=== PATIENT | male | born 1980 | race Caucasian/White ===

== ENCOUNTER 2019-10-13 15:14 | Emergency (ER) | payer OTHER, SELFPAY ==
[2019-10-13 15:32] VITALS: BP 119/87; PULSE 71; RESP 20; TEMP 36.8; O2SAT 98
--- NOTE | 2019-10-13 15:36 | ED.GENADULT ---
HPI - General Adult General Chief complaint: Medical Clearance Stated complaint: Physical for return to work Time Seen by Provider: 10/13/19 15:36 Source: patient Mode of arrival: ambulatory Limitations: no limitations History of Present Illness HPI narrative: Cyril Vargas is a 39 yo male who is here for a note to verify he go to work tomorrow. Patient told nurse that he has been on the street and he does not remember what happened a couple days prior but the agreement was that I would do physical on him and give him a note that he is okay today to be able to return. Patient reports that he has a seizure disorder but is taking his medication; he denies drug and alcohol use; currently smokes cigarettes Related Data Home Medications Medication Instructions Recorded Confirmed divalproex 750 mg PO BID 10/13/19 10/13/19 lacosamide [Vimpat] 50 mg PO Q12H 10/13/19 10/13/19 lacosamide [Vimpat] 200 mg PO Q12H 10/13/19 10/13/19 Allergies Allergy/AdvReac Type Severity Reaction Status Date / Time No Known Allergies Allergy Verified 10/13/19 15:40 Review of Systems Review of Systems: Narrative: CONSTITUTIONAL: Denies fever, chills, sweats. EYES: Denies visual changes, redness, discharge. ENT: Denies rhinorrhea, congestion, sore throat, otalgia. CARDIOVASCULAR: Denies chest pain, palpitations, edema. RESPIRATORY: Denies dyspnea, wheezing, cough GASTROINTESTINAL: Denies abdominal pain, nausea, vomiting, diarrhea. GENITOURINARY: Denies dysuria, hematuria, abnormal discharge SKIN: Denies rash or itching. NEUROLOGIC: Denies numbness, or focal weakness. PSYCHIATRIC: Denies anxiety or depression. Extremities normal PMF Family History Family History Other No known problems Social History Social History (Updated 10/13/19 @ 15:40 by Stacy Galan CNP) Smoking packs per day: 0.5 Smoking cigarettes per day: 10.0 Smoking status: Current every day smoker Alcohol intake: never Substance use: never Comments At time of signature, I agree with nursing past medical, surgical, social and family history. There is no relevant family history pertinent to the presenting complaint. Exam Narrative: Exam Narrative: GENERAL: This is a well-nourished, well-developed patient, in no apparent distress. HEAD: normocephalic, atraumatic. EYES: PERRL. Sclera clear/white. Vision is grossly intact. EARS: External ears normal, auditory canals clear and without drainage, TMs normal without perforation. Hearing grossly intact. NOSE: External nose normal with no obvious nasal discharge, nares without redness, no rhinorrhea. THROAT: Mucous membranes moist, posterior pharynx clear. Mouth: dentition fair NECK: Neck supple, non-tender without lymphadenopathy, CARDIOVASCULAR: Regular rate and rhythm without murmurs, gallops, or rubs. RESPIRATORY: Clear to auscultation. Breath sounds equal bilaterally. No wheezes, rales, or rhonchi. GASTROINTESTINAL: Abdomen soft, non-tender, nondistended. No guarding. SKIN: warm, intact with no suspicious lesions or rash, good texture and turgor. NEURO: awake, alert, and oriented to person, place and time. There were no obvious focal neurologic abnormalities. Steady gait; equal strength all extremities 5/5, normal ROM EXTREMITIES: Normal range of motion. No edema. BACK: Nontender without deformity or crepitance. No flank tenderness. Course Course Emergency Course: Patient appears healthy with no obvious deficits Vital Signs Vital signs: Vital Signs Temperature 98.3 F 10/13/19 15:32 Pulse Rate 71 10/13/19 15:32 Respiratory Rate 10/13/19 15:32 Blood Pressure 119/87 10/13/19 15:32 Pulse Oximetry 98 10/13/19 15:32 Temperature 98.3 F 10/13/19 15:32 Pulse Rate 71 10/13/19 15:32 Respiratory Rate 20 10/13/19 15:32 Blood Pressure 119/87 10/13/19 15:32 Pulse Oximetry 98 10/13/19 15:32 Medical Decision Liz
== END 2019-10-13 15:50 | disposition home or self-care (01) ==
PROVIDERS: Emergency Provider Nurse Practitioner
DX: Z00.00 Encounter for general adult medical examination without abnormal findings (principal); G40.909 Epilepsy, unspecified, not intractable, without status epilepticus; F17.210 Nicotine dependence, cigarettes, uncomplicated
CPT/HCPCS: 99211; G0463

== ENCOUNTER 2020-02-03 13:19 | Emergency (ER) | payer OTHER, SELFPAY ==
[2020-02-03 13:26] VITALS: BP 142/80; PULSE 98; RESP 16; TEMP 37.2; O2SAT 96
--- NOTE | 2020-02-03 14:19 | ED.WOUNDLAC ---
HPI - Wound/Laceration General Chief Complaint: Wound/Laceration Stated Complaint: cut to left middle finger Time Seen by Provider: 02/03/20 13:50 Source: patient Mode of arrival: ambulatory Limitations: no limitations History of Present Illness HPI narrative: Cyril Vargas is a 39 yo male with a PMH seizures and schizophrenia and substance abuse who comes to express care for repair of laceration of left middle finger. Injury sustained while working on a truck; no pain, controlled bleeding Related Data Home Medications Medication Instructions Recorded Confirmed divalproex 750 mg PO BID 10/13/19 02/03/20 lacosamide [Vimpat] 50 mg PO Q12H 10/13/19 02/03/20 lacosamide [Vimpat] 200 mg PO Q12H 10/13/19 02/03/20 olanzapine 10 mg PO DAILY 02/03/20 02/03/20 Allergies Allergy/AdvReac Type Severity Reaction Status Date / Time No Known Allergies Allergy Verified 02/03/20 13:39 Review of Systems Review of Systems: Narrative: CONSTITUTIONAL: Denies fever, chills, sweats. EYES: Denies visual changes, redness, discharge. ENT: Denies rhinorrhea, congestion, sore throat, otalgia. CARDIOVASCULAR: Denies chest pain, palpitations, edema. RESPIRATORY: Denies dyspnea, wheezing, cough GASTROINTESTINAL: Denies abdominal pain, nausea, vomiting, diarrhea. GENITOURINARY: Denies dysuria, hematuria, abnormal discharge SKIN: Denies rash or itching. Laceration to left middle finger NEUROLOGIC: Denies numbness, or focal weakness. PSYCHIATRIC: Denies anxiety or depression. [facility] Past Medical History Medical History (Updated 02/03/20 @ 14:24 by Stacy Galan CNP) Substance abuse Family History Family History (Updated 02/03/20 @ 14:21 by Stacy Galan CNP) Other No active medical problems No known problems Social History Social History (Updated 10/13/19 @ 15:40 by Stacy Galan CNP) Smoking packs per day: 0.5 Smoking cigarettes per day: 10.0 Smoking status: Current every day smoker Alcohol intake: never Substance use: never Comments At time of signature, I agree with nursing past medical, surgical, social and family history. There is no relevant family history pertinent to the presenting complaint. Blood pressure elevated probably due to injury and situation and express care; recheck blood pressure with PCP Exam Narrative: Exam Narrative: GENERAL: This is a well-nourished, well-developed patient, in no distress. HEAD: normocephalic, atraumatic. EYES: Sclera clear/white. Vision is grossly intact. EARS: External ears normal, Hearing grossly intact. NOSE: External nose normal without nasal discharge, nares without redness, no rhinorrhea. THROAT: Mucous membranes moist, NECK: Neck supple, CARDIOVASCULAR: Regular rate and rhythm without murmurs, gallops, or rubs. RESPIRATORY: Clear to auscultation. Breath sounds equal bilaterally. No wheezes, rales, or rhonchi. GASTROINTESTINAL: Abdomen soft, SKIN: warm, intact with no suspicious lesions or rash, good texture and turgor. 1.5 cm linear laceration to left middle finger, mild avulsion mid laceration NEURO: awake, alert, and oriented to person, place and time. There were no obvious focal neurologic abnormalities. Steady gait EXTREMITIES: Normal range of motion. BACK: Nontender without deformity Course Course Emergency Course: Laceration repair Tetanus immunization Follow-up with PCP for suture removal Vital Signs Vital signs: Vital Signs Temperature 99 F 02/03/20 13:26 Pulse Rate 98 02/03/20 13:26 Respiratory Rate 16 02/03/20 13:26 Blood Pressure 142/80 H 02/03/20 13:26 Pulse Oximetry 96 02/03/20 13:26 Temperature 99 F 02/03/20 13:26 Pulse Rate 98 02/03/20 13:26 Respiratory Rate 16 02/03/20 13:26 Blood Pressure 142/80 H 02/03/20 13:26 Pulse Oximetry 96 02/03/20 13:26 Procedures Laceration Laceration 1: Date: 02/03/20 Time: 14:00 Site: hand Side (If applicable): left
[2020-02-03] MEDS: TETANUS,DIPHTHERIA,AC PERTUSSIS ADULT (0.5 ML) BOOSTRIX IM (14:23)
== END 2020-02-03 14:34 | disposition home or self-care (01) ==
PROVIDERS: Emergency Provider Nurse Practitioner; PCP Nurse Practitioner Family
DX: S61.213A Laceration without foreign body of left middle finger without damage to nail, initial encounter (principal); F20.9 Schizophrenia, unspecified; F17.210 Nicotine dependence, cigarettes, uncomplicated; Z23 Encounter for immunization; X58.XXXA Exposure to other specified factors, initial encounter
CPT/HCPCS: 12001; 90471; 90715; 99212; G0463

== ENCOUNTER 2022-02-28 15:50 | Emergency (ER) | payer BC, OTHER, SELFPAY ==
--- NOTE | ~2022-02-28 | XR_ITS ---
EXAM: XR hand LT min 3V DATE: 02/28/2022 16:04 HISTORY: NKI, GEN SWELLING WITH NO REDNESS . COMPARISON: None available. FINDINGS: Normal mineralization. No fracture or dislocation. No lytic or blastic lesion. Joint space s are maintained. No erosion or periosteal change. Dorsal soft tissue swelling. No radiopaque foreign body. IMPRESSION: No acute osseous finding the left hand. Reviewed, dictated and finalized at location K.
[2022-02-28 15:54] VITALS: BP 110/72; PULSE 88; RESP 16; TEMP 36.9; O2SAT 99
[2022-02-28] MEDS: KETOROLAC (*BKC) 60 MG/2 ML VIAL IM (16:26)
--- NOTE | 2022-02-28 16:27 | ED.GENADULT ---
HPI - General Adult General Chief complaint: Extremity Injury, Upper Stated complaint: left hand poss cellulitis Source: patient Mode of arrival: ambulatory Limitations: no limitations History of Present Illness HPI narrative: Patient presents for evaluation of left hand and wrist swelling and pain for the last week. He cannot identify any precipitating injury. 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 States that his pain is sharp, shooting, 8 out of 10 in severity. He tried taking 400 mg of ibuprofen with some improvement in the symptoms. Ice does not seem to alleviate the swelling. He is right-hand dominant. No underlying history of gout. Reports some associated warmth but denies erythema or drainage from the area. No fever, chills, nausea, vomiting. No loss of range of motion but movement makes his symptoms worse. No additional complaints or concerns. Related Data Home Medications Medication Instructions Recorded Confirmed divalproex 250 mg tablet,delayed 250 mg PO DAILY 02/28/22 02/28/22 release divalproex 500 mg tablet,delayed 1,000 mg PO QPM 02/28/22 02/28/22 release divalproex 500 mg tablet,delayed 500 mg PO QAM 02/28/22 02/28/22 release quetiapine 200 mg tablet 200 mg PO QHS 02/28/22 02/28/22 Allergies Allergy/AdvReac Type Severity Reaction Status Date / Time No Known Allergies Allergy Verified 02/28/22 16:05 Review of Systems Review of Systems: CONSTITUTIONAL: Denies fever, chills, or sweats. EYES: Denies visual changes, redness, or discharge. ENT: Denies rhinorrhea, congestion, sore throat, or otalgia. CARDIOVASCULAR: Denies chest pain, palpitations, or edema. RESPIRATORY: Denies cough or dyspnea. GASTROINTESTINAL: Denies abdominal pain, nausea, vomiting, or diarrhea. GENITOURINARY: Denies dysuria or hematuria. SKIN: Denies rash or itching. MUSCULOSKELETAL: Reports pain and swelling in left wrist/hand NEUROLOGIC: Denies headache, numbness, dizziness, or weakness. PSYCHIATRIC: Denies anxiety or depression. 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 HEAD: Normocephalic, atraumatic. EYES: PERRLA and EOMI. ENT: Nares clear, no rhinorrhea or epistaxis. Mucous membranes moist. Oropharynx without tonsillar hypertrophy exudate or other lesions. Bilateral TMs pearly eden nonbulging NECK: Supple. No adenopathy or masses. No carotid bruits or JVD CHEST: Clear to auscultation. No respiratory distress. No wheezes rales or rhonchi HEART: Regular rate and rhythm. No murmur heard. Normal peripheral pulses. ABDOMEN: Soft, nontender, nondistended, normal active bowel sounds. EXTREMITIES: Left hand is edematous. There is tenderness throughout the left wrist and over the second and third metacarpals of the left hand. Full range of motion of the left wrist intact. He is able to wiggle all digits of the left hand. 4 out of 5 handgrip strength on the left. 5 out of 5 handgrip strength on the right. SKIN: Warm, dry, no rash. NEURO: No focal deficits. Alert and oriented x3. PSYCH: Normal mo
== END 2022-02-28 16:46 | disposition home or self-care (01) ==
PROVIDERS: Emergency Provider Nurse Practitioner; PCP Nurse Practitioner Family
DX: M25.532 Pain in left wrist (principal); R22.32 Localized swelling, mass and lump, left upper limb; F17.210 Nicotine dependence, cigarettes, uncomplicated; G40.909 Epilepsy, unspecified, not intractable, without status epilepticus; F31.9 Bipolar disorder, unspecified
CPT/HCPCS: 73130; 96372; 99213; A4565; G0463; J1885

== ENCOUNTER 2022-06-01 12:54 | Emergency (ER) | payer BC, OTHER, SELFPAY ==
[2022-06-01 12:58] VITALS: BP 119/84; PULSE 95; RESP 20; TEMP 36.3; O2SAT 97
--- NOTE | 2022-06-01 12:59 | ED.SKABFB ---
HPI - Skin/Abscess/Foreign Bdy General Stated complaint: Skin Problem Time Seen by Provider: 06/01/22 12:59 Source: patient and RN notes reviewed History of Present Illness HPI narrative: Patient is a 41-year-old male who presents the urgent care with complaints of cellulitis of the left lower leg. Patient states that he was seen at [facility] and placed on Keflex. States that he forgot to ask them for a work note and his work is requiring he have a work note for his 2 days off. Patient states that he did go back to the emergency room and asked for a work note from his visit and they told him he would need to be evaluated again. Patient states he called his PCP who was unable to get him in for 1 week. Patient currently denies of any shortness of breath or chest pain. No other acute complaints. No acute distress noted. Patient aware of the plan of care. Some parts of this dictation were generated by voice recognition software and may contain typographical and/or grammatical inaccuracies. Related Data Home Medications Medication Instructions Recorded Confirmed quetiapine 200 mg tablet 200 mg PO QHS 02/28/22 02/28/22 risperidone 1 mg tablet 1 mg PO BID 06/01/22 06/01/22 Allergies Allergy/AdvReac Type Severity Reaction Status Date / Time No Known Allergies Allergy Verified 06/01/22 13:12 Review of Systems Review of Systems: CONSTITUTIONAL: Denies fever, chills, or sweats. EYES: Denies visual changes, redness, or discharge. ENT: Denies rhinorrhea, congestion, sore throat, or otalgia. CARDIOVASCULAR: Denies chest pain, palpitations, or edema. RESPIRATORY: Denies cough or dyspnea. GASTROINTESTINAL: Denies abdominal pain, nausea, vomiting, or diarrhea. GENITOURINARY: Denies dysuria or hematuria. SKIN: Denies rash or itching. MUSCULOSKELETAL: Reports of redness and swelling to the left lower leg NEUROLOGIC: Denies headache, numbness, or weakness. All other systems reviewed are negative, except as documented in HPI. 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 There is no relevant family history pertinent to the patient complaint. Exam Narrative: GENERAL: This is a well-nourished, well-developed patient, in no apparent distress. HEAD: normocephalic, atraumatic. EYES: PERRL. Sclera clear/white. Vision is grossly intact. EARS: External ears normal NOSE: External nose normal with no obvious nasal discharge, nares without redness, no rhinorrhea. THROAT: Mucous membranes moist NECK: Neck supple CARDIOVASCULAR: Regular rate and rhythm without murmurs, gallops, or rubs. RESPIRATORY: Clear to auscultation. Breath sounds equal bilaterally. No wheezes, rales, or rhonchi. SKIN: warm, intact with no suspicious lesions or rash, good texture and turgor. NEURO: awake, alert, and oriented to person, place and time. There were no obvious focal neurologic abnormalities. EXTREMITIES: Mild erythema noted to left lower leg with 2+ pitting edema. Negative Homans' sign. Positive left pedal pulse with cap refill less than 2 seconds Course Course Level of Care: Expr
== END 2022-06-01 13:14 | disposition home or self-care (01) ==
PROVIDERS: Emergency Provider Nurse Practitioner Family; PCP Nurse Practitioner Family
DX: L03.116 Cellulitis of left lower limb (principal); F17.210 Nicotine dependence, cigarettes, uncomplicated; F31.9 Bipolar disorder, unspecified
CPT/HCPCS: 99211; G0463

== ENCOUNTER 2022-06-03 09:10 | Emergency (ER) | payer BC, OTHER, SELFPAY ==
[2022-06-03 09:16] VITALS: BP 134/76; PULSE 99; RESP 16; TEMP 36.7; O2SAT 98
--- NOTE | 2022-06-03 09:32 | ED.SKABFB ---
HPI - Skin/Abscess/Foreign Bdy General Chief complaint: Skin/Abscess/Foreign Body Stated complaint: Skin Problem Time Seen by Provider: 06/03/22 09:33 Source: patient, RN notes reviewed and old records reviewed Mode of arrival: ambulatory Limitations: no limitations History of Present Illness HPI narrative: 41-year-old male presents to Express Care with complaints of swelling and pain to his left lower extremity. He reports that he was diagnosed on Wednesday at [facility] Emergency room with cellulitis and was placed on Cephalexin 500 mg one tab 4 times daily. Patient continues to have 2+ pitting edema to pretibial and pedal region left leg with continued discomfort and mild redness of lower leg and also increased discomfort if up on his feet. Patient states that he has discomfort to left knee and also in ankle region. Patient states that he was seen in this clinic and given 2 days off on Wednesday but he is still having too much discomfort to his left leg to tolerate standing for prolonged period of time yet. MD complaint: other (Cellulitis) Onset (ago): day(s) (4-5 days) Location: [facility] Severity scale (1-10): 6 Treatments prior to arrival: antibiotic and other (elevation) Related Data Home Medications Medication Instructions Recorded Confirmed quetiapine 200 mg tablet 200 mg PO QHS 02/28/22 06/01/22 risperidone 1 mg tablet 1 mg PO BID 06/01/22 06/01/22 Allergies Allergy/AdvReac Type Severity Reaction Status Date / Time No Known Allergies Allergy Verified 06/01/22 13:12 Review of Systems Review of Systems: CONSTITUTIONAL: Denies fever, chills, or sweats. CARDIOVASCULAR: Denies chest pain, palpitations, or edema. RESPIRATORY: Denies cough or dyspnea. GASTROINTESTINAL: Denies abdominal pain, nausea, vomiting SKIN: Reports redness and swelling 2+pitting at left ankle Denies purulent drainage, vesicles,or any weeping from skin in left lower extremity. Patient voices pain 6/10 to left lower leg, denies any calf pain.. MUSCULOSKELETAL: Denies myalgia. 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 There is no relevant family history pertinent to the presenting complaint Exam Narrative: GENERAL: Well-appearing, well-nourished, and in no acute distress. HEAD: Normocephalic, atraumatic. EYES: PERRLA and EOMI. ENT: Nares clear, no rhinorrhea or epistaxis. Mucous membranes moist.TM's normal with good light reflex, throat pink with no swelling or lesions. NECK: Supple. no lymphadenopathy CHEST: Clear to auscultation. No respiratory distress.SAO2 98% on room air. HEART: Regular rate and rhythm. No murmur heard. Normal peripheral pulses. ABDOMEN: Soft, nontender, nondistended, normal active bowel sounds. EXTREMITIES: Normal range of motion. No edema. SKIN: Warm, dry. Erythema, induration, tenderness, minimal warmth left lower leg. No weeping from left lower leg, swelling to left lower leg pitting at ankle and pretibial, negative Homans' sign NEURO: No focal deficits
== END 2022-06-03 09:56 | disposition home or self-care (01) ==
PROVIDERS: Emergency Provider Registered Nurse; PCP Nurse Practitioner Family
DX: L03.116 Cellulitis of left lower limb (principal); F17.210 Nicotine dependence, cigarettes, uncomplicated; F31.9 Bipolar disorder, unspecified
CPT/HCPCS: 99211; G0463

== ENCOUNTER 2022-08-21 08:40 | Emergency (ER) | payer OTHER, SELFPAY ==
[2022-08-21 08:47] VITALS: BP 121/79; PULSE 90; RESP 20; TEMP 37; O2SAT 96
--- NOTE | 2022-08-21 08:54 | ED.URI ---
HPI - URI/Sore Throat General Chief Complaint: Upper Respiratory Infection Stated Complaint: cold/flu Time Seen by Provider: 08/21/22 08:58 Source: patient, RN notes reviewed and old records reviewed Mode of arrival: ambulatory Limitations: no limitations History of Present Illness HPI Narrative: 42-year-old male presents to the [facility] with cold and flu symptoms. Patient reports symptoms started 3-4 days ago with runny nose, sinus congestion and cough. denies fevers. Denies chest pain. Reports that he has been sleeping more than normal. has not taken anything for his symptoms. No nausea diarrhea. Has Related Data Home Medications Medication Instructions Recorded Confirmed quetiapine 200 mg tablet 200 mg PO QHS 02/28/22 06/01/22 risperidone 1 mg tablet 1 mg PO BID 06/01/22 06/01/22 divalproex 250 mg tablet,delayed mg PO 08/21/22 release divalproex 500 mg tablet,delayed mg PO 08/21/22 release lacosamide 150 mg tablet mg 08/21/22 quetiapine 200 mg tablet mg 08/21/22 risperidone 1 mg tablet mg 08/21/22 Allergies Allergy/AdvReac Type Severity Reaction Status Date / Time No Known Allergies Allergy Verified 06/01/22 13:12 Review of Systems Review of Systems: All systems reviewed & are unremarkable except as noted in HPI and below Constitutional: Constitutional: Reports no additional constitutional complaints Eyes: Eyes: Reports no additional eye complaints ENT: Reports as per HPI and Reports nasal congestion Cardiovascular: Cardiovascular: Reports no additional cardiovascular complaints, Denies chest pain and Denies dyspnea Respiratory: Respiratory: Reports as per HPI, Denies chest congestion, Reports cough, Denies dyspnea and Denies wheezing Gastrointestinal: Gastrointestinal: Reports no additional gastrointestinal complaints, Denies abdominal pain, Denies nausea and Denies vomiting Musculoskeletal: Musculoskeletal: Reports no additional musculoskeletal complaints Integumentary/Breasts: Skin/Breast: Reports system reviewed and no additional complaints, except as docu Neurologic: Reports system reviewed and no additional complaints, except as documented Psychiatric: Psychiatric: Reports no additional psychiatric complaints Allergic/Immunologic: Allergic/Immunologic: Reports no additional allergic/immunologic complaints PMFSH Past Medical History Medical History Anxiety Bipolar 1 disorder Seizures Substance abuse Surgical History Surgical History No pertinent past surgical history Family History Family History Mother No pertinent past medical history Other No active medical problems No known problems Social History Social History Smoking packs per day: 1 Smoking cigarettes per day: 20.0 Smoking status: Current every day smoker Alcohol intake: never Substance use: never 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 There is no relevant family history pertinent to the patient complaint. Exam Const: General: cooperative, healthy appearing, comfortable, no acute distress, well developed, alert and well nourished Nutritional Appearance: well nourished Orientation/consciousness: patient oriented x3 Limitations: no limitations HENMT: Head: normal to inspection Ears: hearing grossly normal bilaterally and external ears normal Face/Nose/Sinus: Normal external nose present, Normal nares present, Normal nasal mucous membranes and turbinates present and normal facial exam Face and sinus: normal facial exam Mouth: Yes Normal oral and palatal mucosa pres
== END 2022-08-21 09:16 | disposition home or self-care (01) ==
PROVIDERS: Emergency Provider Nurse Practitioner; PCP Nurse Practitioner Family
DX: J06.9 Acute upper respiratory infection, unspecified (principal); Z20.822 Contact with and (suspected) exposure to COVID-19; F17.210 Nicotine dependence, cigarettes, uncomplicated; F31.9 Bipolar disorder, unspecified
CPT/HCPCS: 87426; 87804; 99213; C9803; G0463